=== PATIENT | female | born 1940 | race Caucasian/White ===

== ENCOUNTER → 2018-08-20 | Outpatient (CLI) | payer MEDICARE, OTHER | LOC: M WHC 09:05 | DX: Z12.31 Encounter for screening mammogram for malignant neoplasm of breast (principal); Z78.0 Asymptomatic menopausal state; M85.861 Other specified disorders of bone density and structure, right lower leg; M85.862 Other specified disorders of bone density and structure, left lower leg; Z92.23 Personal history of estrogen therapy; Z80.0 Family history of malignant neoplasm of digestive organs | CPT/HCPCS: 77067 ==

== ENCOUNTER → 2018-10-12 | Outpatient (CLI) | payer MEDICARE, OTHER ==
[2018-10-12 10:58] LABS: BASO % 0.2 % (0.0-1.0); EOS % 0.2 % (0.0-3.0); HEMATOCRIT 48.1 % (36.0-47.0); HEMOGLOBIN 15.8 g/dl (12.0-15.5); IMMATURE GRANULOCYTE % 0.4 % (0-3.0); LYMPH # 0.9 10^3/uL (1.5-4.5); LYMPH % 7.3 % (24.0-44.0); MEAN CORPUSCULAR HGB CONC 32.8 g/dl (32.0-36.5); MEAN CORPUSCULAR VOLUME 91.4 fl (80.0-96.0); MONO # 0.7 10^3/uL (0.0-0.8); MONO % 5.8 % (0.0-5.0); NEUTROPHILS # 10.1 10^3/uL (1.8-7.7); NEUTROPHILS % 86.1 % (36.0-66.0); PLATELET COUNT, AUTOMATED 476 10^3/uL (150-450); RED BLOOD COUNT 5.26 10^6/uL (4.00-5.40); RED CELL DISTRIBUTION WIDTH 12.9 % (11.5-14.5); WHITE BLOOD COUNT 11.7 10^3/uL (4.0-10.0)
[2018-10-12 11:20] LABS: ERYTHROCYTE SEDIMENTATION RATE 9 mm/hr (0-30)
[2018-10-12 11:30] LABS: ALBUMIN 3.3 GM/DL (3.2-5.2); ALBUMIN/GLOBULIN RATIO 0.97 (1.00-1.93); ALKALINE PHOSPHATASE 99 U/L (45-117); ALT/SGPT 21 U/L (12-78); ANION GAP 7 MEQ/L (8-16); AST/SGOT 23 U/L (7-37); BILIRUBIN,TOTAL 0.4 MG/DL (0.2-1.0); BLOOD UREA NITROGEN 20 MG/DL (7-18); CALCIUM LEVEL 9.2 MG/DL (8.8-10.2); CARBON DIOXIDE LEVEL 28 MEQ/L (21-32); CHLORIDE LEVEL 105 MEQ/L (98-107); CREATININE FOR GFR 1.04 MG/DL (0.55-1.30); FREE T4 0.97 NG/DL (0.76-1.46); GLOMERULAR FILTRATION RATE 54.3 (>32); GLUCOSE, FASTING 151 MG/DL (70-100); POTASSIUM SERUM 5.2 MEQ/L (3.5-5.1); SODIUM LEVEL 140 MEQ/L (136-145); TOTAL PROTEIN 6.7 GM/DL (6.4-8.2)
== END ==
LOC: M WUC 09:13
DX: R55 Syncope and collapse (principal)
CPT/HCPCS: 84443

== ENCOUNTER → 2018-10-12 | Outpatient (REF) | payer MEDICARE, OTHER | LOC: M WUC 11:49 | DX: R55 Syncope and collapse (principal) ==

== ENCOUNTER → 2018-10-25 | Outpatient (CLI) | payer MEDICARE, OTHER ==
--- NOTE | 2018-10-25 19:11 | REP ---
Pelvic sonography: History: Postmenopausal bleeding. Left oophorectomy. Findings: The patient's the urinary bladder is empty at the time of scanning and transvaginal scanning is performed. Uterine dimensions are normal at 5.1 x 3.0 x 3.5 cm. Endometrial echo is 0.5. Centimeters thick with fluid in the fundal endometrium and 0.7 x 1.0 x 1.1 cm polypoid area in the endometrium as well. No free fluid is noted. The left ovary is surgically absent. The right ovary is normal measuring 1.1 x 0.6 x 1.7 cm. Impression: Polypoid thickening of the endometrium. Rule out endometrial neoplasia.
== END ==
LOC: M WHC 13:19
PROVIDERS: ATTEND Nurse Practitioner Women's Health
DX: N93.8 Other specified abnormal uterine and vaginal bleeding (principal); N95.0 Postmenopausal bleeding

== ENCOUNTER 2018-11-29 08:46 | Day surgery (SDC) | payer MEDICARE, OTHER ==
[~2018-11-29] VITALS: Ht 157.5 cm; Wt 72.0 kg
[~2018-11-29 08:46] MED LIST: CALCCHW19 PO; FISH1000 PO; LR 1,000 ML IV SCH; MULT1TAB10 PO; SIMV10TA2 PO; VAGI10TA VA; VITA100067 PO; VITA500T PO
[2018-11-29] MEDS ORDERED: fentaNYL 100 MCG/2 ML INJECTION (J3010) As Ordered ONE (09:06)
[2018-11-29] MEDS ORDERED: PROPOFOL 200 MG/20 ML VIAL As Ordered ONE (09:06)
[2018-11-29] MEDS ORDERED: dexameTHASONE 4 MG/ML 1ML VIAL (J1100) As Ordered ONE (09:06)
[2018-11-29] MEDS ORDERED: LIDOCAINE 2% INJ 100 MG/5 ML SDV (FOR ANES.) As Ordered ONE (09:06)
[2018-11-29] MEDS ORDERED: MIDAZOLAM INJ 2 MG/2 ML VIAL (J2250) As Ordered ONE (09:06)
[2018-11-29] MEDS ORDERED: ONDANSETRON 4MG/2ML VIAL (J2405) As Ordered ONE (09:06)
[2018-11-29] MEDS ORDERED: fentaNYL 100 MCG/2 ML INJECTION (J3010) IV PRN (14:30)
[2018-11-29] MEDS ORDERED: PERCOCET 5MG/325MG TAB PO PRN (14:30)
[2018-11-29] MEDS ORDERED: LR 1,000 ML IV SCH ×2 (14:30)
[2018-11-29] MEDS ORDERED: ONDANSETRON 4MG/2ML VIAL (J2405) IV PRN (14:30)
[2018-11-29 16:10] VITALS: BP 135/77
--- NOTE | 2018-11-29 17:56 | RO ---
DATE OF PROCEDURE: 11/29/2018 PREPROCEDURE DIAGNOSIS: Post-menopausal bleeding, abnormal ultrasound, and she also had vaginal stenosis and cervical stenosis as evidenced by office exam. POSTPROCEDURE DIAGNOSIS: Post-menopausal bleeding, abnormal ultrasound, and she also had vaginal stenosis and cervical stenosis as evidenced by office exam. PROCEDURE: Lysis of vaginal adhesions, as well as cervical adhesions with the dilation, dilation and curettage, hysteroscopy using MyoSure. SURGEON: Dr. Rebecca Kapadia LOGISTICS LEAD: ANESTHESIA: LMA. DESCRIPTION OF PROCEDURE: Ellen was brought to the operating room where sufficient LMA anesthesia was induced, and she was prepped, draped, and positioned in the usual sterile fashion. We did not use a weighted speculum on the atrophic menopausal woman. We did drain the bladder and used a right-angled [place], so much narrower, not even as wide as the Papa. And then saw the upper vagina; as expected from the office exam, was sealed front to back with scarring. There was no visual ability to see the cervix. The prep itself had caused a slight abrasion at the introitus because the patient does have marked atrophy, but she had been taking Vagifem. Bimanual exam was used to once again palpate the cervix, which, of course, had also been visualized on ultrasound and with palpation, we were able to grab the vaginal tissue and the cervix where it was felt to be closest to the surface and then used traction to bring that down and better visualize the adhesions. In the midline posteriorly, there was a very prominent band of those adhesions, and we started with those and broke those down. We were then able to peel the vagina back posteriorly and then get a tenaculum on the cervix posteriorly and we were able to remove the front one and then again peel the vagina back anteriorly so that we could see the cervix after breaking down these vaginal scars. It is not clear what the scars are from, whether this is a result of intercourse, certainly the most prominent area was midline posterior, so she could have had a tear with intercourse that healed poorly and created this closure. She certainly could have had some scarring from some other source. She did not feel that she had ever had any vaginal procedures. She had had an ovarian cystectomy, and this was long enough ago that it is possible that there was vaginal work done with that, but to her knowledge, she had never had a dilation and curettage (D and C) or any other vaginal work done. With the cervix exposed and tenaculum on anteriorly and posteriorly, we were able to dilate it and then carefully place the hysteroscope. There was some backed up mucus there at the cervix, not surprising given the stenosis that we had and a little resistance at the cervix as well, but, again, this is simply scarring and was dilated in the usual fashion. We were then able to place the hysteroscope and the MyoSure. We were able to see the endometrial cavity. The contour of the endometrial cavity was normal. The ostia were normal. There was posteriorly towards the patient's left a very definite mucousy-looking polypoid lesion, and this polyp was carefully resected using the MyoSure resecting device. We then sampled the rest of the endometrium, and there was another polypoid lesion at the fundus. Neither of these was excessively vascular. They did not have a very aggressive appearance. There was no ulceration or other vascular abnormality, so my expectation in looking at them is that that is benign polyps but, of course, they were completely resected and sent to the pathologist with the sample. We also did curettage and then went back and reevaluated the area of the dissection of the scar tissue. There was no persistent bleeding over the areas of the lysis of those scars, and no evidence that it would be beneficial to sew any of those, nor did it appear that we needed to pack the upper vagina, so, we went ahead and left those tissues and the procedure was then ended. Estimated blood loss for the procedure: About 10 mL. Fluid replacement was crystalloid. Complications: None. Condition and Disposition: Ellen tolerated the procedure well and was recovering in the recovery room in good condition.
[2018-11-30] MEDS ORDERED: LR 1,000 ML IV SCH (08:45)
[2018-11-30] MEDS ORDERED: fentaNYL 100 MCG/2 ML INJECTION (J3010) IV PRN (08:45)
[2018-11-30] MEDS ORDERED: PERCOCET 5MG/325MG TAB PO PRN (08:45)
[2018-11-30] MEDS ORDERED: ONDANSETRON 4MG/2ML VIAL (J2405) IV PRN (08:45)
== END 2018-11-29 16:20 | disposition home or self-care (01) ==
LOC: M SDC 08:46
PROVIDERS: ATTEND Obstetrics & Gynecology
DX: N95.0 Postmenopausal bleeding (principal); N84.0 Polyp of corpus uteri; N95.2 Postmenopausal atrophic vaginitis; N88.2 Stricture and stenosis of cervix uteri; Z88.2 Allergy status to sulfonamides; Z79.82 Long term (current) use of aspirin; E78.5 Hyperlipidemia, unspecified; Z79.899 Other long term (current) drug therapy
CPT/HCPCS: 58558; 88305; J1100; J2250; J2405; J3010

== ENCOUNTER → 2018-12-12 | Outpatient (CLI) | payer MEDICARE, OTHER ==
[~2018-12-12] MED LIST changes: -LR 1,000 ML IV SCH
[2018-12-12 09:44] LABS: BLOOD UREA NITROGEN 14 MG/DL (7-18); CALCIUM LEVEL 9.5 MG/DL (8.8-10.2); CARBON DIOXIDE LEVEL 28 MEQ/L (21-32); CHLORIDE LEVEL 108 MEQ/L (98-107); CREATININE FOR GFR 0.86 MG/DL (0.55-1.30); GLOMERULAR FILTRATION RATE > 60.0 (>32); GLUCOSE, FASTING 90 MG/DL (70-100); POTASSIUM SERUM 4.5 MEQ/L (3.5-5.1); SODIUM LEVEL 143 MEQ/L (136-145)
== END ==
LOC: M LAB 08:30
PROVIDERS: ATTEND Internal Medicine Cardiovascular Disease
DX: E83.52 Hypercalcemia (principal)

== ENCOUNTER → 2019-08-22 | Outpatient (CLI) | payer MEDICARE, OTHER ==
--- NOTE | 2019-08-22 13:53 | REPMRS ---
Patient History The patient states she had a clinical breast exam in 08/2019. Patient is postmenopausal. Family history of breast cancer at age 50 or over in maternal aunt, colorectal cancer at age 80 in mother. Took estrogen for 21 years. Digital Woman Screen Mammo: August 22, 2019 - Exam #: [id number] Bilateral CC and MLO view(s) were taken. Technologist: Lavinia Lara, Technologist Prior study comparison: August 20, 2018, bilateral digital woman screen mammo performed at [facility]. August 18, 2017, digital woman screen mammo performed at [facility]. August 18, 2016, digital woman screen mammo performed at [facility]. FINDINGS: There are scattered fibroglandular densities. There has been no change in the appearance of the mammogram from the prior studies. There is a mild amount of scattered fibroglandular density which is fairly symmetric. There is no interval development of dominant mass, architectural distortion, or grouped microcalcification suggestive of malignancy. 3-D tomosynthesis shows no additional findings. Assessment: BI-RADS/ACR category 1 mammogram. Negative Mammogram. Recommendation Routine screening mammogram of both breasts in 1 year (for women over age 40). This patient's Lifetime Breast Cancer Risk is estimated at 2.0 %. This mammogram was interpreted with the aid of an FDA-approved computer-aided dectection system. Electronically Signed By: Hira Thomas MD 08/22/19 [id number]
== END ==
LOC: M WHC 09:09
PROVIDERS: ATTEND Nurse Practitioner Women's Health
DX: Z12.31 Encounter for screening mammogram for malignant neoplasm of breast (principal); Z78.0 Asymptomatic menopausal state; Z80.0 Family history of malignant neoplasm of digestive organs; Z92.23 Personal history of estrogen therapy
CPT/HCPCS: 77063; 77067; G0463

== ENCOUNTER → 2020-08-24 | Outpatient (CLI) | payer MEDICARE, OTHER ==
[~2020-08-24] MED LIST changes: -SIMV10TA2 PO; +SIMV10TA21 PO; +VITA-243 PO; -VITA500T PO
--- NOTE | 2020-08-27 16:39 | REP ---
INDICATION: Screening Mammo COMPARISON: 08/22/2019, 08/20/2018. TECHNIQUE: Digital screening (2D) mammography was performed bilaterally. Additionally, breast tomosynthesis (3D mammography) was performed bilaterally in the CC and MLO projections and compared to the prior exam(s). FINDINGS: Mild scattered fibroglandular tissue bilaterally. In the central aspect of the left breast, in the mid third, there is an oval nodular opacity about 7 mm in diameter which appears to contain tiny microcalcification's. No other mass is seen bilaterally. No other suspicious cluster of microcalcification's are seen bilaterally. IMPRESSION: Oval 7 mm nodular density appears to contain tiny microcalcification's centrally in the mid third of the left breast. Recommend spot compression magnification views and ultrasound to further evaluate. BI-RADS Category 0-incomplete mammogram. Additional spot compression magnification views and ultrasound required for further evaluation. This mammogram was read with the assistance of Yulex, an FDA approved computer aided detection system for mammography. Negative x-ray reports should not delay surgical consultation if a dominant or clinically suspicious mass is present. Not all breast cancers can be identified by mammography. Therefore, we recommend that you continue to perform regular breast self-examination and physical examination and then promptly contact your physician of any concerns or changes. Adenosis and dense breasts may obscure an underlying neoplasm. Last physical breast exam August 11, 2020. Volpara breast density Lupe Carey lifetime risk of breast cancer 1.6% Patient letter M0. <Electronically signed by Jm Green > 08/27/20 [id number]
== END ==
LOC: M WHC 09:03
PROVIDERS: ATTEND Nurse Practitioner Women's Health
DX: Z12.31 Encounter for screening mammogram for malignant neoplasm of breast (principal); N63.25 Unspecified lump in the left breast, overlapping quadrants
CPT/HCPCS: 77063; 77067; G0463

== ENCOUNTER → 2020-09-07 | Outpatient (CLI) | payer MEDICARE, OTHER ==
--- NOTE | 2020-09-07 15:20 | REP ---
INDICATION: ADDL VIEWS/LEFT BREAST/NODULE; LEFT BREAST NODULE. COMPARISON: 08/24/2020 as well as other prior exams. TECHNIQUE: Spot compression views left breast performed as well as left breast ultrasound. FINDINGS: Ill-defined 7 mm nodule is confirmed in the 12 o'clock region of the left breast. It is in the mid 3rd of the breast and contains several tiny pleomorphic microcalcifications. Real-time sonographic evaluation of the left breast performed between 11 and 1 o'clock. No cystic or solid nodule is seen sonographically. IMPRESSION: BIRADS/ACR category 4 suspicious. There is an ill-defined 7 mm nodule in the region of 12 o'clock left breast containing multiple tiny pleomorphic microcalcifications. This is not seen sonographically. Recommend stereotactic biopsy. This mammogram was interpreted with the aid of an FDA-approved computer-aided detection system. The patient letter being requested is M4. RECOMMENDATION: Recommend stereotactic biopsy left breast. <Electronically signed by Jm Green > 09/07/20 [id number]
== END ==
LOC: M WHC 13:46
PROVIDERS: ATTEND Nurse Practitioner Women's Health
DX: Z12.31 Encounter for screening mammogram for malignant neoplasm of breast (principal); N64.0 Fissure and fistula of nipple
CPT/HCPCS: 76642; 77065; G0279

== ENCOUNTER → 2020-11-11 | Outpatient (CLI) | payer MEDICARE, OTHER ==
[2020-11-11 09:32] VITALS: BP 124/70
--- NOTE | 2020-11-11 09:46 | REP ---
INDICATION: L NODULE W/CALCS/STERO BX/CK CLIP PLACEMENT. COMPARISON: Comparison mammography September 07, 2020.. TECHNIQUE: Specimen radiography. Single-view. FINDINGS: Specimen a radiography demonstrates numerous microcalcifications representing the target grouping of calcifications in the left breast. There are microcalcifications in 3 of the removed cores. IMPRESSION: Specimen radiography demonstrates the targeted microcalcifications. <Electronically signed by Hira Thomas > 11/11/20 0947
--- NOTE | 2020-11-11 09:48 | REP ---
INDICATION: L NODULE W/CALCS/STERO BX/CK CLIP PLACEMENT. Marker clip placement views. COMPARISON: Comparison left breast mammography is from September 07, 2020. TECHNIQUE: Craniocaudal and mediolateral views of the left breast are obtained. FINDINGS: Craniocaudal and true mediolateral views of the left breast obtained post biopsy demonstrate the needle biopsy marker clip in the the exact position where pre biopsy images showed the micro calcific grouping and associated nodular density. There is a small bubble of post procedural air superior to the clip on the mL view felt to be procedure artifact. No evidence hematoma. IMPRESSION: Marker clip in good position. The target grouping of calcifications and its associated nodule are no longer apparent. <Electronically signed by Hira Thomas > 11/11/20 0910
--- NOTE | 2020-11-11 09:52 | REP ---
INDICATION: L NODULE W/CALCS/STERO BX/CK CLIP PLACEMENT. COMPARISON: Comparison mammography September 07, 2020.. TECHNIQUE: Stereotactic guidance is provided. FINDINGS: Stereotactic mammographic guidance is provided to Dr. James performed stereotactic needle biopsy procedure left breast. IMPRESSION: Procedural imaging. Stereotactic guidance. <Electronically signed by Hira Thomas > 11/11/20 09
--- NOTE | 2020-11-12 09:22 | ROOPDOC ---
[facility] Report Of Operation Report of Operation DATE OF PROCEDURE: 11/11/2020 DIAGNOSIS: Left breast suspicious nodule with calcifications PROCEDURE: Left breast stereotactic biopsy with clip placement SURGEON: Morgan Camacho BLOOD LOSS: minimal Lidocaine 1% LOT [id number] Expiration 02/2024 Sodium Bicarbonate 8.4% LOT [id number] Expiration 08/2021 Hydromark clip LOT [id number] Expiration 11/2021 SHAPE 1 (closed Spring) Bx device: Stereotactic Mammotome Revolve Dual Vacuum- assisted Biopsy System 10 G LOT [id number] Expiration 06/2023 Informed consent was obtained in the preop area. The most common risk and possible complications including bleeding, hematoma, bruising, infection, injury to surrounding structures were explained to the patient and she expressed understanding. Patient was taken to the procedure room and placed prone on the [facility] Prone Breast Biopsy table with the left breast hanging through the table aperture. left breast was placed into Cranio-Caudal compression and Ethanol Operator tamika images were taken. Suspicious nodule with calcifications was identified on the tamika images and target was set. CC approach from the bottom was chosen for this procedure. At this time, since we were able to confirm visibility of the suspicious nodule with calcifications and patient tolerated prone positioning allowing to proceed with the biopsy, appropriate time out was done stating patients name, date of , and the procedure to be performed. The left breast in CC compression was prepped in the usual fashion. Plain Lidocaine 1% and 8.4% sodium bicarbonate 10:1 mix was used to anesthetize the skin, the biopsy site and tissues along the anticipated biopsy tract. Small skin incision was made with blade number 11. Mammotome 10 G stereotactic breast biopsy device was inserted through the incision and advanced to the previously set coordinates marking the target lesion. Pre-fire imaging was taken to assure appropriate positioning. At this time, Mammotome 10 G breast biopsy device was fired and vacuum assisted biopsies were collected. The biopsy samples were investigated with [employer] Imaging system and calcifications were observed. Biopsy samples were then placed in the formaldehyde, marked with patients name and left breast biopsy site, and sent to pathology for evaluation. Hydromark clip SHAPE 1 was placed into the Mammotome biopsy device channel and deployed. Post-deployment imaging was done to assure appropriate clip deployment. Clip was noted in the left breast. At this point, paddle CC compression of the left breast was released and manual pressure was held to decrease harmonic effect and to assure hemostasis. No bleeding was noted upon removal of the pressure. Patient was slowly repositioned and placed into sitting position, and then assisted off the table. Post-biopsy mammogram of the left breast was obtained and showed clip in expected position. Postprocedural dressing was placed. Patient tolerated procedure well and was taken to the recovery unit in stable condition. Discharge instructions were discussed with the patient and she expressed understanding. MORGAN CAMACHO DO Nov 12, 2020 09:22
== END ==
LOC: M WHCPRO 07:40
PROVIDERS: ATTEND Surgery
DX: N60.22 Fibroadenosis of left breast (principal); R92.8 Other abnormal and inconclusive findings on diagnostic imaging of breast

== ENCOUNTER → 2021-04-15 | Outpatient (REF) | payer MEDICARE, OTHER ==
[~2021-04-15] MED LIST changes: +AMPI500C9 PO; +CALC600T60 PO; +D31000TA2 PO; +OMEG10002 PO; +VITA500C24 PO
[2021-04-15 12:55] LABS: CA 125 3.9 U/ML (<30.2); CA19-9 TUMOR MARKER,CARBOHYDRA 7.4 U/ML (<35.0)
== END ==
LOC: M PLALAB 08:48
PROVIDERS: ATTEND Nurse Practitioner Women's Health
DX: N83.201 Unspecified ovarian cyst, right side (principal)
CPT/HCPCS: 36415; 86301; 86304; G0463

== ENCOUNTER → 2021-05-05 | Outpatient (CLI) | payer MEDICARE, OTHER ==
--- NOTE | 2021-05-05 13:51 | REP ---
INDICATION: N83.201 RT OVARIAN CYST NOTED ON CT SCAN AT [facility]. COMPARISON: None. TECHNIQUE: Transabdominal and transvaginal scanning were performed. FINDINGS: Uterine dimensions are normal at 5.5 x 3.2 x 2.2 cm. Endometrial echo is 0.3 cm thick and centrally placed. No free fluid is seen in the cul-de-sac. Visualized bladder [place] are smooth. There are nabothian cysts in the cervix. Visualized urinary bladder [place] are smooth. The right ovary has dimensions of 5.1 x 3.9 x 5.3 cm. It's Doppler flow is normal with a resistive index of . There is a cyst in the right ovary which is unilocular measuring 5.1 x 3.9 x 5.3 cm. The left ovary is surgically absent. No left adnexal mass, cyst, or free fluid.. IMPRESSION: Post left oophorectomy. 5.1 cm simple appearing right ovarian cyst. No mural nodule or wall thickening seen. No free fluid. Normal uterus.. <Electronically signed by Hira Thomas > 05/05/21 [id number]
== END ==
LOC: M WHC 12:52
PROVIDERS: ATTEND Nurse Practitioner Women's Health
DX: N83.201 Unspecified ovarian cyst, right side (principal); Z90.721 Acquired absence of ovaries, unilateral; N88.8 Other specified noninflammatory disorders of cervix uteri

== ENCOUNTER → 2021-05-06 | Outpatient (CLI) | payer MEDICARE, OTHER ==
--- NOTE | 2021-05-06 09:29 | REPMRS ---
Patient History The patient states she had a clinical breast exam in November 2020. Family history of breast cancer at age 50 or over in maternal aunt, colorectal cancer at age 80 in mother. Benign stereotatic loc for ea lesion. of the left breast, November 11, 2020. Benign radio exam breast specimen. of the left breast, November 11, 2020. Took estrogen for 21 years. Diagnostic Unilateral Mammo: Left Breast - May 06, 2021 - Exam #: [id number] CC and MLO view(s) were taken of the left breast. Technologist: Jasmine uHll, Technologist Prior study comparison: September 07, 2020, left breast diagnostic unilateral mammo performed at [facility]. August 24, 2020, bilateral digital woman screen mammo performed at [facility]. FINDINGS: There are scattered fibroglandular densities. There is a needle biopsy marker clip again noted in good position at the biopsy site with associated cylindrical soft tissue density related to the hydrophilic portion of the HydroMARK clip device. The nodular density containing calcifications which was the target of the recent biopsy is no longer apparent. There has been no other change in the appearance of the left breast parenchyma in the interval since the prior examination. No mass, architectural distortion, or microcalcific grouping has developed. No suspicious finding. The Volpara volumetric breast density pattern is B. 3-D tomosynthesis shows no additional findings. Assessment: BI-RADS/ACR category 2 mammogram. Benign Findings. Recommendation Routine screening mammogram of both breasts in 6 months. This patient's [facility] Lifetime Breast Cancer RIsk is estimated at 1.2 %. This mammogram was interpreted with the aid of an FDA-approved computer-aided dectection system. Electronically Signed By: Hira Thomas MD 05/06/21 0929
== END ==
LOC: M WHC 08:51
PROVIDERS: ATTEND Surgery
DX: R92.8 Other abnormal and inconclusive findings on diagnostic imaging of breast (principal); Z80.3 Family history of malignant neoplasm of breast; R92.1 Mammographic calcification found on diagnostic imaging of breast
CPT/HCPCS: 77065; G0279

== ENCOUNTER → 2021-07-08 | Outpatient (CLI) | payer MEDICARE, OTHER ==
--- NOTE | 2021-07-08 16:34 | REP ---
INDICATION: RIGHT OVARIAN CYST. COMPARISON: 05/05/2021. TECHNIQUE: Transabdominal and transvaginal scanning performed. FINDINGS: Uterine dimensions are 5.7 x 1.9 x 2.9 cm. Endometrial echo is 3 mm in AP dimension and centrally placed. The bladder measures 3.6 x 1.7 x 7.6cm. The right ovary has dimensions of 4.6 x 3.9 x 5.1 cm. It's Doppler flow is normal with a resistive index of 0.46. The left ovary has been previously surgically removed. There is a stable simple, anechoic cyst of the right ovary 4.6 x 3.9 x 5.1 cm. No free fluid is seen in the cul-de-sac. IMPRESSION: Stable simple cyst right ovary maximum diameter 5.1 cm. <Electronically signed by Jm Green > 07/08/21 1836
== END ==
LOC: M WHC 14:54
PROVIDERS: ATTEND Obstetrics & Gynecology
DX: N83.201 Unspecified ovarian cyst, right side (principal)

== ENCOUNTER → 2021-08-26 | Outpatient (CLI) | payer MEDICARE, OTHER ==
--- NOTE | 2021-08-26 10:31 | REPMRS ---
Patient History The patient states she had a clinical breast exam in August 2021. Family history of breast cancer at age 50 or over in maternal aunt, colorectal cancer at age 80 in mother. Benign stereotatic loc for ea lesion. of the left breast, November 11, 2020. Benign radio exam breast specimen. of the left breast, November 11, 2020. Took estrogen for 21 years. covid vaccines 11/23/2020 right arm. 12/23/20 right arm. Patient states no breast complaints today. Patient has signed MRS History Sheet. Digital Woman Screen Mammo: August 26, 2021 - Exam #: [id number] Bilateral CC and MLO view(s) were taken. Technologist: RT Radha Prior study comparison: May 06, 2021, left breast diagnostic unilateral mammo performed at [facility]. September 07, 2020, left breast diagnostic unilateral mammo performed at [facility]. FINDINGS: There are scattered fibroglandular densities. Screening. Digital screening (2D) mammography was performed bilaterally in the CC and MLO projections. Additionally, breast tomosynthesis (3D mammography) was performed bilaterally in the CC and MLO projections. Todays exam was compared to the prior exam/exams. By history, the patient has no complaints of a palpable breast abnormality or other significant breast complaints. The breasts are unchanged in size and shape. There are no huagn-soft tissue densities or spiculated masses. There is no internal architectural distortion. There are no suspicious huang-calcific clusters. Skin thickening or nipple retraction is not present. IMPRESSION: BI-RADS Category 2- Benign Findings. There is no evidence of malignant alteration of the breasts. Followup examination recommended in one year. The Volpara volumetric breast density category is B, there are scattered areas of fibroglandular densities. This mammogram was read with the assistance of Ajungo,an FDA approved computer aided detection system for mammography. The lifetime Tyrer-Cuzick score is 1.2% Negative x-ray reports should not delay surgical consultation if a dominant or clinically suspicious mass is present. Not all breast cancers can be identified by mammography. Therefore, we recommend that you continue to perform regular breast self-examination and physical examination and then promptly contact your physician of any concerns or changes. Adenosis and dense breasts may obscure an underlying neoplasm. Assessment: BI-RADS/ACR category 2 mammogram. Benign Findings. Recommendation Routine screening mammogram of both breasts in 1 year. Electronically Signed By: Edward Curtis DO 08/26/21 103
== END ==
LOC: M WHC 09:40
PROVIDERS: ATTEND Nurse Practitioner Women's Health
DX: Z12.31 Encounter for screening mammogram for malignant neoplasm of breast (principal); Z80.0 Family history of malignant neoplasm of digestive organs; Z86.018 Personal history of other benign neoplasm; Z92.23 Personal history of estrogen therapy
CPT/HCPCS: 77063; 77067; G0463

== ENCOUNTER → 2022-01-04 | Outpatient (CLI) | payer MEDICARE, OTHER ==
[~2022-01-04] MED LIST changes: -D31000TA2 PO; +VITA100093 PO
== END ==
LOC: M WHC 13:48
PROVIDERS: ATTEND Nurse Practitioner Women's Health
DX: N83.201 Unspecified ovarian cyst, right side (principal)

== ENCOUNTER → 2022-09-28 | Outpatient (CLI) | payer MEDICARE, OTHER | LOC: M WHC 08:21 | PROVIDERS: ATTEND Advanced Practice Midwife | DX: Z12.31 Encounter for screening mammogram for malignant neoplasm of breast (principal) ==

== ENCOUNTER → 2022-10-25 | Outpatient (CLI) | payer MEDICARE, OTHER ==
[2022-10-25 10:58] LABS: ALBUMIN 3.6 G/DL (3.2-5.2); BILIRUBIN,TOTAL 1.1 MG/DL (0.3-1.2); CALCIUM LEVEL 9.5 MG/DL (8.3-10.6); CHOLESTEROL RISK RATIO 2.4 (<5); CREATININE FOR GFR 0.99 MG/DL (0.55-1.30); GLOMERULAR FILTRATION RATE 56.9 (>32); HDL CHOLESTEROL 69.3 MG/DL (>40); LDL CHOLESTEROL 80.1 MG/DL (<100); POTASSIUM SERUM 4.5 MMOL/L (3.5-5.1); TOTAL PROTEIN 6.4 G/DL (5.7-8.2)
== END ==
LOC: M WUC 08:21
PROVIDERS: ATTEND Internal Medicine
DX: E78.5 Hyperlipidemia, unspecified (principal)

== ENCOUNTER → 2023-01-17 | Outpatient (CLI) | payer MEDICARE, OTHER | LOC: M WHC 15:03 | PROVIDERS: ATTEND Advanced Practice Midwife | DX: N83.201 Unspecified ovarian cyst, right side (principal) ==

== ENCOUNTER → 2024-01-08 | Outpatient (CLI) | payer MEDICARE, OTHER | LOC: M WHC 12:54 | PROVIDERS: ATTEND Advanced Practice Midwife | DX: N83.201 Unspecified ovarian cyst, right side (principal) ==

== ENCOUNTER → 2024-11-21 | Outpatient (CLI) | payer MEDICARE, OTHER | LOC: M WHC 14:19 | PROVIDERS: ATTEND Nurse Practitioner Family | DX: Z12.31 Encounter for screening mammogram for malignant neoplasm of breast (principal) ==

== ENCOUNTER → 2025-02-06 | Outpatient (CLI) | payer MEDICARE, OTHER | LOC: M WHC 14:08 | PROVIDERS: ATTEND Advanced Practice Midwife | DX: N83.201 Unspecified ovarian cyst, right side (principal) ==